=== PATIENT | female | born 1960 | race African-American/Black ===

== ENCOUNTER 2017-10-20 14:11 | Emergency (ER) | payer MEDICAID ==
[~2017-10-20] VITALS: Ht 167.6 cm; Wt 63.0 kg
[~2017-10-20 14:11] MED LIST: CELE100C PO; EPZITAB4 PO; HIV MED; HYDR-2768 PO; MACR100C PO
[2017-10-20 14:34] VITALS: BP 113/66; PULSE 93; RESP 17; TEMP 98.1; O2SAT 98
--- NOTE | 2017-10-20 15:46 | PD ---
HPI Chief Complaint: Abdominal Pain Time Seen by Provider: 15:46 Travel History International Travel<30 days: No Contact w/Intl Traveler<30days: No Traveled to known affect area: No History of Present Illness HPI 57-year-old -[place] female presents emergency department with nausea and vomiting, and left lower quadrant discomfort similar to previous UTIs in the past. Patient states this started yesterday. She has had chills but denies specific fever. Patient denies diarrhea or constipation. She denies vaginal discharge. Patient states she had similar symptoms 2 months ago treated by her PCP. Patient denies upper respiratory symptoms, chest pain, or shortness of breath. Patient denies history of diverticulitis or colitis in the past. She has no known drug allergies. PFSH Past Medical History Arthritis: Yes Asthma: Yes Autoimmune Disease: Yes Blood Disorders: Yes (HIV) Anxiety: No Depression: Yes Cancer: No Cardiovascular Problems: Yes (HTN) Chemotherapy: No COPD: No Cerebrovascular Accident: No Diminished Hearing: No Endocrine: No Gastrointestinal Disorders: No Glaucoma: Yes Genitourinary: Yes Headaches: Yes Hypertension: Yes Immune Disorder: Yes (HIV) Kidney Stones: No Musculoskeletal: Yes Neurologic: Yes Psychiatric: Yes Reproductive: No Respiratory: Yes (emphazema) Migraines: No Radiation Therapy: No Renal Failure: No Seizures: No Sleep Apnea: No ?: Not Past Surgical History Abdominal Surgery: No AICD: No Arteriovenous Shunt: No Cardiac Surgery: No Ear Surgery: No Endocrine Surgery: No Eye Surgery: No Genitourinary Surgery: No Gynecologic Surgery: No Insulin Pump: No Joint Replacement: No Oral Surgery: No Pacemaker: No Thoracic Surgery: No Other Surgery: Yes (BREAST BX 'YEARS AGO') Social History Alcohol Use: Yes (OCC) Tobacco Use: Yes (OCC) Substance Use: No Allergies-Medications (Allergen,Severity, Reaction): Coded Allergies: No Known Allergies (Verified Adverse Reaction, Unknown, 10/20/17) Reported Meds & Prescriptions Reported Meds & Active Scripts Active Reported Meloxicam 7.5 Mg Tab 7.5 Mg PO DAILY Propranolol (Propranolol HCl) 20 Mg Tab 20 Mg PO DAILY [hiv med] 1 Tab PO DAILY Review of Systems Except as stated in HPI: all other systems reviewed are Neg General / Constitutional: Positive: Chills, No: Fever Eyes: No: Visual changes HENT: No: Headaches Cardiovascular: No: Chest Pain or Discomfort Respiratory: No: Cough, Shortness of Breath, Wheezing Gastrointestinal: Positive: Nausea, Vomiting, Abdominal Pain (Left lower quadrant), Loss of Appetite, No: Diarrhea, Hematemesis, Hematochezia, Constipation, Changes in Bowel Habits, Indigestion, Dysphagia Genitourinary: No: Urgency, Frequency, Dysuria, Hematuria Musculoskeletal: No: Pain Skin: No Rash Neurologic: No: Weakness Psychiatric: No: Depression Endocrine: No: Polydipsia Hematologic/Lymphatic: No: Easy Bruising Physical Exam Narrative GENERAL: Patient appears in mild to moderate distress per SKIN: Warm and dry. Normal color. Normal turgor. No diaphoresis. HEAD: Atraumatic. Normocephalic. EYES: Pupils equal and round. No scleral icterus. No injection or drainage. ENT: No nasal bleeding or discharge. Mucous membranes pink and moist. Pharynx is clear. Airways patent. NECK: Trachea midline. Supple. CARDIOVASCULAR: Regular rate and rhythm. RESPIRATORY: No accessory muscle use. Clear to auscultation. Breath sounds equal bilaterally. GASTROINTESTINAL: Abdomen soft, mild nonspecific left lower quadrant and suprapubic tenderness, nondistended. No guarding or rebound. No CVA tenderness. Hepatic and splenic margins not palpable. MUSCULOSKELETAL: Extremities without clubbing, cyanosis, or edema. No obvious deformities. NEUROLOGICAL: Awake and alert. No obvious cranial nerve deficits. Motor grossly within normal limits. Five out of 5 muscle strength in the arms and legs. Normal speech. PSYCHIATRIC: Appropriate mood and affect; insight and judgment normal. Data Data Last Documented VS Vital Signs Date Time Temp Pulse Resp B/P (MAP) Pulse Ox O2 Delivery O2 Flow Rate FiO2 10/20/17 16:17 74 16 152/88 (109) 98 Room Air 10/20/17 14:34 98.1 Orders Orders Complete Blood Count With Diff (10/20/17 15:49) Comprehensive Metabolic Panel (10/20/17 15:49) Urinalysis - C+S If Indicated (10/20/17 15:49) Iv Access Insert/Monitor (10/20/17 15:49) Ecg Monitoring (10/20/17 15:49) Oximetry (10/20/17 15:49) Morphine Inj (Morphine Inj) (10/20/17 16:00) Ondansetron Inj (Zofran Inj) (10/20/17 16:00) Sodium Chlor 0.9% 1000 Ml Inj (Ns 1000 M (10/20/17 15:49) Sodium Chloride 0.9% Flush (Ns Flush) (10/20/17 16:00) Cath For Specimen (10/20/17 16:35) Ct Abd/Pel W Iv Contrast(Rout) (10/20/17 17:57) Labs Laboratory Tests Test 10/20/17 16:10 10/20/17 17:30 White Blood Count 4.5 TH/MM3 Red Blood Count 4.09 MIL/MM3 Hemoglobin 12.7 GM/DL Hematocrit 36.6 % Mean Corpuscular Volume 89.5 FL Mean Corpuscular Hemoglobin 31.1 PG Mean Corpuscular Hemoglobin Concent 34.8 % Red Cell Distribution Width 18.8 % Platelet Count 220 TH/MM3 Mean Platelet Volume 7.6 FL Neutrophils (%) (Auto) 38.1 % Lymphocytes (%) (Auto) 48.1 % Monocytes (%) (Auto) 11.3 % Eosinophils (%) (Auto) 1.7 % Basophils (%) (Auto) 0.8 % Neutrophils # (Auto) 1.7 TH/MM3 Lymphocytes # (Auto) 2.1 TH/MM3 Monocytes # (Auto) 0.5 TH/MM3 Eosinophils # (Auto) 0.1 TH/MM3 Basophils # (Auto) 0.0 TH/MM3 CBC Comment DIFF FINAL Differential Comment Blood Urea Nitrogen 18 MG/DL Creatinine 1.36 MG/DL Random Glucose 117 MG/DL Total Protein 8.0 GM/DL Albumin 3.4 GM/DL Calcium Level 9.1 MG/DL Alkaline Phosphatase 93 U/L Aspartate Amino Transf (AST/SGOT) 32 U/L Alanine Aminotransferase (ALT/SGPT) 33 U/L Total Bilirubin 0.1 MG/DL Sodium Level 140 MEQ/L Potassium Level 3.7 MEQ/L Chloride Level 108 MEQ/L Carbon Dioxide Level 26.5 MEQ/L Anion Gap 6 MEQ/L Estimat Glomerular Filtration Rate 49 ML/MIN Urine Color LIGHT-YELLOW Urine Turbidity CLEAR Urine pH 5.5 Urine Specific [place] 1.005 Urine Protein NEG mg/dL Urine Glucose (UA) NEG mg/dL Urine Ketones NEG mg/dL Urine Occult Blood NEG Urine Nitrite NEG Urine Bilirubin NEG Urine Urobilinogen LESS THAN 2.0 MG/DL Urine Leukocyte Esterase SMALL Urine WBC 4 /hpf Urine Squamous Epithelial Cells 4 /hpf Microscopic Urinalysis Comment CULT NOT INDICATED MDM Medical Decision Making Medical Screen Exam Complete: Yes Emergency Medical Condition: Yes Medical Record Reviewed: Yes Differential Diagnosis Abdominal pain. Urinary tract infection. Diverticulitis. Colitis. Gastroenteritis. Narrative Course Patient is medically stable at time of exam. Labs ordered including CBC, CMP, and urinalysis. IV access is obtained and the patient is given 4 mg Zofran IV, 2 mg morphine IV , and 1000 mL of normal saline bolus. CBC is unremarkable. Chemistries unremarkable except for chloride of 108, creatinine is 1.36, GFR is 49, glucose 117, total bilirubin 0.[address] of the abdomen with IV contrast is ordered as urine is negative, to rule out colitis or diverticulitis. [address] is still pending. Care of the patient is turned over to Aquiles Dhillon PA-C for final disposition. Condition: Stable Viktor Hay Oct 20, 2017 15:46
[2017-10-20] MEDS ORDERED: SODIUM CHLOR 0.9% 1000 ML INJ 1,000 ML IV SCH (15:49)
[2017-10-20] MEDS ORDERED: SODIUM CHLORIDE 0.9% FLUSH 10 ML FLUSH IV FLUSH PRN (16:00)
[2017-10-20] MEDS ORDERED: ONDANSETRON HCL 4 MG/2 ML VIAL IVP ONE (16:00)
[2017-10-20] MEDS ORDERED: MORPHINE SULFATE 4 MG/ML INJ IV PUSH ONE (16:00)
[2017-10-20 16:17] VITALS: BP 152/88; PULSE 74; RESP 16; O2SAT 98
[2017-10-20] MEDS ORDERED: MELO7.5T27 PO (16:20)
[2017-10-20] MEDS ORDERED: hiv med PO (16:20)
[2017-10-20] MEDS ORDERED: PROP20TA3 PO (16:20)
[2017-10-20 16:32] LABS: AUTOMATED NEUTROPHIL # 1.7 TH/MM3 (1.8-7.7); BASOPHIL % 0.8 % (0.0-2.0); EOSINOPHIL # 0.1 TH/MM3 (0-0.4); EOSINOPHIL % 1.7 % (0.0-4.0); HEMATOCRIT 36.6 % (35.0-46.0); HEMOGLOBIN 12.7 GM/DL (11.6-15.3); LYMPH % 48.1 % (9.0-44.0); LYMPHOCYTE # 2.1 TH/MM3 (1.0-4.8); MEAN CELL VOLUME 89.5 FL (80.0-100.0); MEAN CORPUSCULAR HEMOGLOBIN 31.1 PG (27.0-34.0); MEAN CORPUSCULAR HGB CONC 34.8 % (32.0-36.0); MEAN PLATELET VOLUME 7.6 FL (7.0-11.0); MONO % 11.3 % (0.0-8.0); MONOCYTE # 0.5 TH/MM3 (0-0.9); NEUT % 38.1 % (16.0-70.0); PLATELET COUNT 220 TH/MM3 (150-450); RED BLOOD COUNT 4.09 MIL/MM3 (4.00-5.30); RED CELL DISTRIBUTION WIDTH 18.8 % (11.6-17.2); WHITE BLOOD COUNT 4.5 TH/MM3 (4.0-11.0)
--- NOTE | 2017-10-20 16:37 | PD ---
Physical Exam Date Seen by Provider: Oct 20, 2017 Narrative This patient presents with a one-day history of nausea, vomiting and lower abdominal discomfort. These symptoms are similar to previous symptoms associated with a urinary tract infection. Data Data Last Documented VS Vital Signs Date Time Temp Pulse Resp B/P (MAP) Pulse Ox O2 Delivery O2 Flow Rate FiO2 10/20/17 16:17 74 16 152/88 (109) 98 Room Air 10/20/17 14:34 98.1 Orders Orders Complete Blood Count With Diff (10/20/17 15:49) Comprehensive Metabolic Panel (10/20/17 15:49) Urinalysis - C+S If Indicated (10/20/17 15:49) Iv Access Insert/Monitor (10/20/17 15:49) Ecg Monitoring (10/20/17 15:49) Oximetry (10/20/17 15:49) Morphine Inj (Morphine Inj) (10/20/17 16:00) Ondansetron Inj (Zofran Inj) (10/20/17 16:00) Sodium Chlor 0.9% 1000 Ml Inj (Ns 1000 M (10/20/17 15:49) Sodium Chloride 0.9% Flush (Ns Flush) (10/20/17 16:00) Cath For Specimen (10/20/17 16:35) Labs Laboratory Tests Test 10/20/17 16:10 White Blood Count 4.5 TH/MM3 Red Blood Count 4.09 MIL/MM3 Hemoglobin 12.7 GM/DL Hematocrit 36.6 % Mean Corpuscular Volume 89.5 FL Mean Corpuscular Hemoglobin 31.1 PG Mean Corpuscular Hemoglobin Concent 34.8 % Red Cell Distribution Width 18.8 % Platelet Count 220 TH/MM3 Mean Platelet Volume 7.6 FL Neutrophils (%) (Auto) 38.1 % Lymphocytes (%) (Auto) 48.1 % Monocytes (%) (Auto) 11.3 % Eosinophils (%) (Auto) 1.7 % Basophils (%) (Auto) 0.8 % Neutrophils # (Auto) 1.7 TH/MM3 Lymphocytes # (Auto) 2.1 TH/MM3 Monocytes # (Auto) 0.5 TH/MM3 Eosinophils # (Auto) 0.1 TH/MM3 Basophils # (Auto) 0.0 TH/MM3 CBC Comment DIFF FINAL Differential Comment MDM Supervised Visit with ATA: Yes Narrative Course I, Dr. Castillo, have reviewed the advance practice practitioner's documentation and am in agreement, met with the patient face to face, made the diagnosis, and the medical decision making was done by me. *My assessment and Findings: Patient is awake and alert and in no acute distress. She has a benign abdomen. Please see Avery Hay PA-C's note for results of laboratory and radiographic evaluation, ED course, final diagnosis and disposition Condition: Stable India Castillo MD Oct 20, 2017 16:37
[2017-10-20 17:03] LABS: ALKALINE PHOSPHATASE 93 U/L (45-117); TOTAL BILIRUBIN ADULT 0.1 MG/DL (0.2-1.0)
[2017-10-20 17:07] LABS: ALBUMIN 3.4 GM/DL (3.4-5.0); ALT (GPT) 33 U/L (10-53); AST (GOT) 32 U/L (15-37); BICARBONATE 26.5 MEQ/L (21.0-32.0); BLOOD UREA NITROGEN 18 MG/DL (7-18); CALCIUM 9.1 MG/DL (8.5-10.1); CHLORIDE 108 MEQ/L (98-107); CREATININE 1.36 MG/DL (0.50-1.00); GLOMERULAR FILTRATION RATE 49 ML/MIN (>89); GLUCOSE,RANDOM 117 MG/DL (74-106); SODIUM (NA) 140 MEQ/L (136-145)
[2017-10-20 17:50] LABS: BILIRUBIN, URINE NEG (NEG); BLOOD, URINE NEG (NEG); GLUCOSE,URINE NEG (NEG); KETONE, URINE NEG (NEG); NITRITE,URINE NEG (NEG); PH, URINE 5.5 (5.0-8.5); SQUAMOUS EPITHELIAL CELL URINE 4 /hpf (0-5); URINE COLOR LIGHT-YELLOW (YELLW/STRAW); URINE LEUKOCYTE ESTERASE SMALL (NEG)
[2017-10-20] MEDS ORDERED: IOHEXOL 350 MG/ML 10 ML VIAL (for RAD DIAG) IVCONTRAST ONE (19:35)
--- NOTE | 2017-10-20 20:22 | RADRPT ---
EXAM DATE/TIME: 10/20/2017 19:12 [facility] COMPARISON: No previous studies available for comparison. INDICATIONS : Left lower quadrant pain. IV CONTRAST: 80 cc Omnipaque 350 (iohexol) IV ORAL CONTRAST: No oral contrast ingested. RADIATION DOSE: 5.61 CTDIvol (mGy) MEDICAL HISTORY : Hypertension. Emphysema. HIV.DIabetes. SURGICAL HISTORY : None. ENCOUNTER: Initial ACUITY: 2 days PAIN SCALE: 10/10 LOCATION: Left lower quadrant TECHNIQUE: Volumetric scanning of the abdomen and pelvis was performed. Using automated exposure control and ad justment of the mA and/or kV according to patient size, radiation dose was kept as low as reasonably achievable to obtain optimal diagnostic quality images. DICOM format image data is available electro nically for review and comparison. FINDINGS: There is situs inversus with the liver on the left side and the stomach and spleen on the right side. 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 LOWER LUNGS: The visualized lower lungs are clear. LIVER: Homogeneous density without lesion. There is no dilation of the biliary tree. No calcified gallston es. SPLEEN: Normal size without lesion. PANCREAS: Within normal limits. KIDNEYS: Normal in size and shape. There is no mass, stone or hydronephrosis. ADRENAL GLANDS: Within normal limits. VASCULAR: There is no aortic aneurysm. BOWEL/MESENTERY: The stomach, small bowel, and colon demonstrate no acute abnormality. There is no free intraperitone al air or fluid. ABDOMINAL WALL: Within normal limits. RETROPERITONEUM: There is no lymphadenopathy. There is a small abdominal IVC below the liver. The hepatic portion of t he IVC is normal. There is azygous continuation for drainage of the abdomen and pelvis. BLADDER: No wall thickening or mass. REPRODUCTIVE: There is a 4 cm densely calcified uterine mass consistent with a leiomyoma. INGUINAL: There is no lymphadenopathy or hernia. MUSCULOSKELETAL: There is degenerative change of the lumbar spine. CONCLUSION: 1. Situs inversus. 2. No acute abnormality seen. 3. Uterine calcified leiomyoma. Venancio Matson MD on October 20, 2017 at 20:14 Board Certified Radiologist. This report was verified electronically.
[2017-10-20] MEDS ORDERED: ZOFR4TAB PO (20:30)
--- NOTE | 2017-10-20 20:33 | PD ---
Data Data Last Documented VS Vital Signs Date Time Temp Pulse Resp B/P (MAP) Pulse Ox O2 Delivery O2 Flow Rate FiO2 10/20/17 16:17 74 16 152/88 (109) 98 Room Air 10/20/17 14:34 98.1 Orders Orders Complete Blood Count With Diff (10/20/17 15:49) Comprehensive Metabolic Panel (10/20/17 15:49) Urinalysis - C+S If Indicated (10/20/17 15:49) Iv Access Insert/Monitor (10/20/17 15:49) Ecg Monitoring (10/20/17 15:49) Oximetry (10/20/17 15:49) Morphine Inj (Morphine Inj) (10/20/17 16:00) Ondansetron Inj (Zofran Inj) (10/20/17 16:00) Sodium Chlor 0.9% 1000 Ml Inj (Ns 1000 M (10/20/17 15:49) Sodium Chloride 0.9% Flush (Ns Flush) (10/20/17 16:00) Cath For Specimen (10/20/17 16:35) Ct Abd/Pel W Iv Contrast(Rout) (10/20/17 17:57) Iohexol 350 Inj (Omnipaque 350 Inj) (10/20/17 19:35) Labs Laboratory Tests Test 10/20/17 16:10 10/20/17 17:30 White Blood Count 4.5 TH/MM3 Red Blood Count 4.09 MIL/MM3 Hemoglobin 12.7 GM/DL Hematocrit 36.6 % Mean Corpuscular Volume 89.5 FL Mean Corpuscular Hemoglobin 31.1 PG Mean Corpuscular Hemoglobin Concent 34.8 % Red Cell Distribution Width 18.8 % Platelet Count 220 TH/MM3 Mean Platelet Volume 7.6 FL Neutrophils (%) (Auto) 38.1 % Lymphocytes (%) (Auto) 48.1 % Monocytes (%) (Auto) 11.3 % Eosinophils (%) (Auto) 1.7 % Basophils (%) (Auto) 0.8 % Neutrophils # (Auto) 1.7 TH/MM3 Lymphocytes # (Auto) 2.1 TH/MM3 Monocytes # (Auto) 0.5 TH/MM3 Eosinophils # (Auto) 0.1 TH/MM3 Basophils # (Auto) 0.0 TH/MM3 CBC Comment DIFF FINAL Differential Comment Blood Urea Nitrogen 18 MG/DL Creatinine 1.36 MG/DL Random Glucose 117 MG/DL Total Protein 8.0 GM/DL Albumin 3.4 GM/DL Calcium Level 9.1 MG/DL Alkaline Phosphatase 93 U/L Aspartate Amino Transf (AST/SGOT) 32 U/L Alanine Aminotransferase (ALT/SGPT) 33 U/L Total Bilirubin 0.1 MG/DL Sodium Level 140 MEQ/L Potassium Level 3.7 MEQ/L Chloride Level 108 MEQ/L Carbon Dioxide Level 26.5 MEQ/L Anion Gap 6 MEQ/L Estimat Glomerular Filtration Rate 49 ML/MIN Urine Color LIGHT-YELLOW Urine Turbidity CLEAR Urine pH 5.5 Urine Specific [place] 1.005 Urine Protein NEG mg/dL Urine Glucose (UA) NEG mg/dL Urine Ketones NEG mg/dL Urine Occult Blood NEG Urine Nitrite NEG Urine Bilirubin NEG Urine Urobilinogen LESS THAN 2.0 MG/DL Urine Leukocyte Esterase SMALL Urine WBC 4 /hpf Urine Squamous Epithelial Cells 4 /hpf Microscopic Urinalysis Comment CULT NOT INDICATED MDM Medical Record Reviewed: Yes Supervised Visit with ATA: No Narrative Course Please see previous providers notes. I assumed care of this patient pending CT imaging. Briefly this is a 57-year-old female who has had lower abdominal pain , nausea and vomiting for the past few days. She thought that she may have a UTI. Denies any vaginal bleeding or discharge. Denies any diarrhea. CT abdomen and pelvis reveals CONCLUSION: 1. Situs inversus. 2. No acute abnormality seen. 3. Uterine calcified leiomyoma. The patient is already aware of the situs inversus. Urinalysis reveals no evidence of infectious process. Lab work is essentially unremarkable. Upon reexamination the patient does feel improved. She will be discharged with a short course of Zofran. Diagnosis Primary Impression: Abdominal pain Additional Impression: Nausea and vomiting Additional Instruction: Zofran for nausea. Slowly advance diet as tolerated. Follow-up with primary care physician next week. Return for any emergent medical conditions. Med/Other Pt SpecificInfo: Prescription(s) given Scripts Ondansetron (Zofran) 4 Mg Tab 4 MG PO Q6HR Y for NAUSEA OR VOMITING, #20 TAB 0 Refills Prov: Jamey Santillan MD 10/20/17 Disposition: 01 DISCHARGE HOME Condition: Stable Aquiles Dhillon Oct 20, 2017 20:33
== END 2017-10-20 21:04 | disposition home or self-care (01) ==
LOC: NEPD 14:11
DX: R10.32 Left lower quadrant pain (principal); R11.2 Nausea with vomiting, unspecified; Q89.3 Situs inversus; M19.90 Unspecified osteoarthritis, unspecified site; J45.909 Unspecified asthma, uncomplicated; I10 Essential (primary) hypertension; H40.9 Unspecified glaucoma; Z21 Asymptomatic human immunodeficiency virus [HIV] infection status; Z72.0 Tobacco use
CPT/HCPCS: 74177; 80053; 81001; 85025; 96374; 96375; 99284; J2270; J2405; J7030; P9612; Q9967

== ENCOUNTER 2017-12-07 16:54 | Emergency (ER) | payer MEDICAID ==
[~2017-12-07] VITALS: Ht 167.6 cm; Wt 50.0 kg
[~2017-12-07 16:54] MED LIST changes: -CELE100C PO; -EPZITAB4 PO; -HIV MED; -HYDR-2768 PO; -MACR100C PO; +MELO7.5T27 PO; +PROP20TA3 PO; +ZOFR4TAB PO; +hiv med PO
[2017-12-07 17:03] VITALS: BP 116/78; PULSE 75; RESP 16; TEMP 98.1; O2SAT 99
--- NOTE | 2017-12-07 17:43 | PD ---
HPI Chief Complaint: Cold / Flu Symptoms Time Seen by Provider: 17:36 Travel History International Travel<30 days: No Contact w/Intl Traveler<30days: No Traveled to known affect area: No History of Present Illness HPI Patient comes emergency department complaining of sore throat and cough ongoing for 2 days. Patient describes sore throat as burning scratching pain without radiation. Pain is worse with swallowing. Patient reports cough is occasionally productive coughing of "mucousy" phlegm. Patient reports 2 episodes of nonbloody nonbilious vomiting. Denies any chest pain, shortness breath, fevers, headache, ear pain, abdominal pain, loss change in bowel or bladder, or known sick contacts. Patient denies taking anything for this. Denies anything makes symptoms better. PFSH Past Medical History Arthritis: Yes Asthma: Yes Autoimmune Disease: Yes Blood Disorders: Yes (HIV) Anxiety: No Depression: Yes Cancer: No Cardiovascular Problems: Yes (HTN) Chemotherapy: No COPD: No Cerebrovascular Accident: No Diabetes: Yes (per pt with no meds) Diminished Hearing: No Endocrine: No Gastrointestinal Disorders: No Glaucoma: Yes Genitourinary: Yes Headaches: Yes Hypertension: Yes Immune Disorder: Yes (HIV) Kidney Stones: No Musculoskeletal: Yes Neurologic: Yes Psychiatric: Yes Reproductive: No Respiratory: Yes (COPD) Immunizations Current: Yes Migraines: No Radiation Therapy: No Renal Failure: No Seizures: No Sleep Apnea: No Past Surgical History Abdominal Surgery: No AICD: No Arteriovenous Shunt: No Cardiac Surgery: No Ear Surgery: No Endocrine Surgery: No Eye Surgery: No Genitourinary Surgery: No Gynecologic Surgery: No Insulin Pump: No Joint Replacement: No Oral Surgery: No Pacemaker: No Thoracic Surgery: No Other Surgery: Yes (BREAST BX 'YEARS AGO') Social History Alcohol Use: Yes (OCC) Tobacco Use: Yes (OCC) Substance Use: No Allergies-Medications (Allergen,Severity, Reaction): Coded Allergies: No Known Allergies (Verified Adverse Reaction, Unknown, 12/07/17) Reported Meds & Prescriptions Reported Meds & Active Scripts Active Zofran Odt (Ondansetron Odt) 4 Mg Tab 4 Mg SL Q6HR PRN Tamiflu (Oseltamivir Phosphate) 75 Mg Cap 75 Mg PO BID 5 Days Zofran (Ondansetron HCl) 4 Mg Tab 4 Mg PO Q6HR PRN Reported Meloxicam 7.5 Mg Tab 7.5 Mg PO DAILY Propranolol (Propranolol HCl) 20 Mg Tab 20 Mg PO DAILY [hiv med] 1 Tab PO DAILY Review of Systems Except as stated in HPI: all other systems reviewed are Neg Physical Exam Narrative GENERAL: Well-developed, well nourished, in no acute distress, and non-ill appearing. SKIN: Focused skin assessment warm and dry. HEAD: Atraumatic. Normocephalic. EYES: Pupils equal and round. EOMI. No scleral icterus. No injection or drainage. ENT: No nasal bleeding or discharge. Mucous membranes pink and moist. Tympanic membranes pearly sewell bilaterally. Posterior pharynx nonerythematous without exudate. Uvula is midline. Patient swallowing own saliva and speaking full sentences without difficulty. No tenderness to facial sinuses to palpation. NECK: Trachea midline. No cervical lymphadenopathy. Supple. No nuclear rigidity. CARDIOVASCULAR: Regular rate and rhythm. No murmur appreciated. RESPIRATORY: No accessory muscle use. No respiratory distress. Clear to auscultation. Breath sounds equal bilaterally. GASTROINTESTINAL: Abdomen soft, non-tender, nondistended, and no guarding. Hepatic and splenic margins not palpable. Normal bowel sounds x4. No pulsatile mass. MUSCULOSKELETAL: No obvious deformities. No clubbing. No cyanosis. No edema. Full range of motion. NEUROLOGICAL: Awake and alert. No obvious cranial nerve deficits. Motor grossly within normal limits. Normal speech. PSYCHIATRIC: Appropriate mood and affect; insight and judgment normal. Data Data Last Documented VS Vital Signs Date Time Temp Pulse Resp B/P (MAP) Pulse Ox O2 Delivery O2 Flow Rate FiO2 12/07/17 17:03 98.1 75 16 116/78 (91) 99 Orders Orders Chest, Pa & Lat (12/07/17 ) Group A Rapid Strep Screen (12/07/17 17:41) Influenzae A/B Antigen (12/07/17 17:41) Strep Culture (Group A) (12/07/17 18:15) Ed Discharge Order (12/07/17 18:58) Oseltamivir (Tamiflu) (12/07/17 19:00) MDM Medical Decision Making Medical Screen Exam Complete: Yes Emergency Medical Condition: Yes Interpretation(s) Last Impressions Chest X-Ray 12/07/17 0000 Signed Impressions: Service Date/Time: Tuesday, December 07, 2017 17:50 - CONCLUSION: No acute disease. Venancio Matson MD Differential Diagnosis Influenza, strep pharyngitis, viral pharyngitis, URI, pneumonia, bronchitis, viral syndrome Narrative Course Patient looks great. Patients symptom complex is consistent with Influenza, or flu-like illness. The patient is tolerating fluids and is well hydrated. There is no evidence to suggest secondary infection (pneumonia, sepsis/bacteremia, etc.) at this time. I discussed with the patient, diagnosis, and plan of care and to follow up with the patients primary physician. Flu prep is positive. I discussed with the patient initiating Tamiflu and the patient agreed with plan. The patient was instructed to return if the worsens in anyway, especially if not tolerating fluids, increased pain or swelling, difficulty swallowing or breathing, or as needed. The patient agreed with plan. Chest X-ray was performed and negative for consolidation, pneumonia. Patient in no obvious distress upon re-evaluation. All pertinent laboratory/ Radiology result(s) discussed with patient. Patient was asked if they wanted to speak to my attending, which the patient did not wish to do at this time. Discussed patient with Dr. Chew prior to discharge, who is in agreement plan of care and disposition. Any questions/concerns in reference to patient diagnosis/condition discussed and clarified prior to patient's discharge. Reinforced sheer importance of close follow up with patient's primary physician or primary care clinic. Instructed patient to return to ED immediately, if symptoms return/worsen. Patient showed understanding of above instructions. Further instructions and recommendations were detailed in discharge paperwork. Patient ambulated without difficulty out of ED at discharge. Diagnosis Primary Impression: Influenza Patient Instructions: General Instructions, Influenza (ED) Additional Instructions: Follow-up with your primary care physician in 5-7 days for reevaluation. Take all medication as prescribed. Drink plenty of non-caffeinated and nonalcoholic fluids. Use [id number] Tylenol and ibuprofen as needed for pain and/or fever control. Follow instructions on the packaging. Return to the emergency department if symptoms get worse. Med/Other Pt SpecificInfo: Prescription(s) given Scripts Ondansetron Odt (Zofran Odt) 4 Mg Tab 4 MG SL Q6HR Y for Nausea/Vomiting, #12 TAB 0 Refills Prov: Aakash Chew MD 12/07/17 Oseltamivir (Tamiflu) 75 Mg Cap 75 MG PO BID for Mgmt Viral Infection for 5 Days, #10 CAP 0 Refills Prov: Aakash Chew MD 12/07/17 Disposition: 01 DISCHARGE HOME Condition: Stable Bulmaro Ayala December 07, 2017 17:43
--- NOTE | 2017-12-07 18:20 | RADRPT ---
EXAM DATE/TIME: 12/07/2017 17:50 [facility] COMPARISON: No previous studies available for comparison. INDICATIONS : Cough. MEDICAL HISTORY : Chronic obstructive pulmonary disease. Hypertension Diabetes mellitus type I. SURGICAL HISTORY : None. ENCOUNTER: Initial ACUITY: 2 days PAIN SCORE: 0/10 LOCATION: Bilateral chest FINDINGS: PA and lateral views of the chest demonstrate the lungs to be symmetrically aerated without evidence of mass, infiltrate or effusion. The cardiomediastinal contours are unremarkable. Osseous structure s are intact. CONCLUSION: No acute disease. Venancio Matson MD on December 07, 2017 at 18:16 Board Certified Radiologist. This report was verified electronically.
[2017-12-07] MEDS ORDERED: ZOFR4TAB3 SL (18:58)
[2017-12-07] MEDS ORDERED: OSEL75 PO (18:58)
[2017-12-07] MEDS ORDERED: OSELTAMIVIR PHOSPHATE 75 MG CAP PO ONE (19:00)
== END 2017-12-07 19:26 | disposition home or self-care (01) ==
LOC: NEPK 16:54
DX: J10.1 Influenza due to other identified influenza virus with other respiratory manifestations (principal); E11.9 Type 2 diabetes mellitus without complications; I10 Essential (primary) hypertension; J44.9 Chronic obstructive pulmonary disease, unspecified; Z21 Asymptomatic human immunodeficiency virus [HIV] infection status
CPT/HCPCS: 71046; 87081; 87804; 87880; 99284